=== PATIENT | female | born 1930 | race Caucasian/White ===

== ENCOUNTER 2018-07-09 12:23 | Observation (INO) | payer MEDICARE ==
[~2018-07-09] VITALS: Ht 170.2 cm; Wt 77.2 kg
[2018-07-09 13:42] LABS: BASOPHILS # (AUTO) 0.03 x10^3/uL (0-0.1); BASOPHILS % (AUTO) 1 % (0-1); EOSINOPHILS # (AUTO) 0.06 x10^3/uL (0-0.4); EOSINOPHILS % (AUTO) 1 % (1-7); LYMPHOCYTES # (AUTO) 1.04 x10^3/uL (1-3.4); LYMPHOCYTES % (AUTO) 22 % (22-44); MD NO; MEAN CORPUSCULAR HEMOGLOBIN 29.4 pg (27.0-34.8); MEAN CORPUSCULAR VOLUME 89.1 fL (80-100); MEAN PLATELET VOLUME 8.9 fL (7.4-10.4); MONOCYTES # (AUTO) 0.38 x10^3/uL (0.2-0.8); MONOCYTES % (AUTO) 8 % (2-9); NEUTROPHILS # (AUTO) 3.21 x10^3/uL (1.8-6.8); NEUTROPHILS % (AUTO) 68 % (42-75); PLATELET COUNT 165 x10^3/uL (130-400); RED BLOOD COUNT 4.75 x10^6/uL (3.82-5.3); RED CELL DISTRIBUTION WIDTH 13.9 % (9.6-15.2)
[2018-07-09 13:50] LABS: ALBUMIN 3.4 g/dL (3.4-5.0); ANION GAP 6 mmol/L (5-15); CALCIUM 9.4 mg/dL (8.5-10.1); CHLORIDE 114 mmol/L (98-107); CREATININE 0.69 mg/dL (0.55-1.02)
[2018-07-09 13:54] LABS: TROPONIN I 0.058 ng/mL (0.000-0.045)
--- NOTE | 2018-07-09 14:14 | NUR ---
BREAK RN: PTS DAUGHTER ASKING FOR ADULT BRIEFS FOR PT. PROVIDED. NO OTHER NEEDS EXPRESSED AT THIS TIME. U/S TECH AT BEDSIDE.
--- NOTE | 2018-07-09 14:19 | NUR ---
REPORT TO ZORAN VAZQUEZ.
--- NOTE | 2018-07-09 14:25 | NUR ---
US at bedside at this time
--- NOTE | 2018-07-09 15:09 | NUR ---
SBAR report received from RNZandra. Pt resting on gurhart, on all monitors, daughter at bedside.
--- NOTE | 2018-07-09 15:47 | NUR ---
Admitting MD at bedside.
--- NOTE | 2018-07-09 15:59 | NUR ---
Telephone SBAR report called to Janet VAZQUEZ. Janet notified this RN that the room is not clean and will call our throughput RN when the room is clean.
[2018-07-09] MEDS ORDERED: SODIUM CHLORIDE 0.9% 1,000 ML IV SCH (16:03)
[2018-07-09] MEDS ORDERED: NITROGLYCERIN 0.4 MG BOTTLE (25 TABS) SL PRN (16:30)
[2018-07-09] MEDS ORDERED: LABETALOL 5MG/ML, 20ML IVPush PRN (16:30)
[2018-07-09] MEDS ORDERED: ACETAMINOPHEN 325 MG TABLET PO PRN (16:30)
--- NOTE | 2018-07-09 16:42 | NUR ---
Pt resting on gurodilon, daughter at bedside. Pt forgetful about reason for being here and need to be admitted to hospital. Daughter understands POC.
[2018-07-09 16:46] LABS: INTERNATIONAL NORMALIZED RATIO 1.01 (0.93-1.1); PROTHROMBIN TIME 10.6 Seconds (9.6-11.5)
[2018-07-09 16:56] LABS: TROPONIN I 0.178 ng/mL (0.000-0.045)
[2018-07-09 18:00] VITALS: BP 152/83
[2018-07-09] MEDS: HEPARIN 5,000 UNITS/ML, 1ML SQ SCH ×2 (18:23→19:23)
[2018-07-09 19:12] VITALS: BP 153/89
[2018-07-09 20:54] VITALS: BP 132/77
[2018-07-09] MEDS ORDERED: METOPROLOL TARTRATE 25 MG TABLET PO SCH (21:00)
[2018-07-10 01:06] LABS: TROPONIN I 0.142 ng/mL (0.000-0.045)
[2018-07-10 02:30] VITALS: BP 159/88
[2018-07-10 05:12] LABS: BASOPHILS # (AUTO) 0.03 x10^3/uL (0-0.1); BASOPHILS % (AUTO) 1 % (0-1); EOSINOPHILS # (AUTO) 0.16 x10^3/uL (0-0.4); EOSINOPHILS % (AUTO) 3 % (1-7); LYMPHOCYTES # (AUTO) 1.84 x10^3/uL (1-3.4); LYMPHOCYTES % (AUTO) 39 % (22-44); MD NO; MEAN CORPUSCULAR HEMOGLOBIN 30.5 pg (27.0-34.8); MEAN CORPUSCULAR HGB CONC 34.3 g/dL (32.4-35.8); MEAN CORPUSCULAR VOLUME 89.2 fL (80-100); MEAN PLATELET VOLUME 8.5 fL (7.4-10.4); MONOCYTES % (AUTO) 13 % (2-9); NEUTROPHILS % (AUTO) 44 % (42-75); PLATELET COUNT 150 x10^3/uL (130-400); RED BLOOD COUNT 4.23 x10^6/uL (3.82-5.3); RED CELL DISTRIBUTION WIDTH 13.9 % (9.6-15.2)
[2018-07-10 05:27] LABS: ALBUMIN 2.9 g/dL (3.4-5.0); ANION GAP 6 mmol/L (5-15); CALCIUM 8.7 mg/dL (8.5-10.1); CHLORIDE 113 mmol/L (98-107)
[2018-07-10 05:32] LABS: ALANINE AMINOTRANSFERASE 22 U/L (12-78); ALKALINE PHOSPHATASE 77 U/L (45-117); BILIRUBIN,TOTAL 0.9 mg/dL (0.2-1.0); CREATININE 0.85 mg/dL (0.55-1.02); TOTAL PROTEIN 6.8 g/dL (6.4-8.2); TROPONIN I 0.101 ng/mL (0.000-0.045)
[2018-07-10 07:45] VITALS: BP 165/98
[2018-07-10] MEDS ORDERED: METOPROLOL TARTRATE 25 MG TABLET PO SCH (09:00)
[2018-07-10] MEDS: HEPARIN 5,000 UNITS/ML, 1ML SQ SCH (09:25)
[2018-07-10] MEDS ORDERED: ASPIRIN 81 MG TABLET CHEW PO SCH (12:30)
[2018-07-10] MEDS ORDERED: ASPI-515 PO (12:39)
[2018-07-10] MEDS ORDERED: METO25TA35 PO (12:39)
[2018-07-10] MEDS ORDERED: ATOR40TA78 PO (12:39)
[2018-07-10] MEDS ORDERED: FURO20TA3 PO (12:40)
[2018-07-10] MEDS ORDERED: POTA20PA25 PO (12:40)
[2018-07-10] MEDS ORDERED: POTASSIUM CHLORIDE 20 MEQ PACKET PO SCH (13:00)
[2018-07-10] MEDS ORDERED: FUROSEMIDE 20 MG TABLET PO SCH ×2 (13:00→17:00)
[2018-07-10 13:58] VITALS: BP 132/82
[2018-07-10] MEDS ORDERED: SODIUM CHLORIDE 0.9% 1,000 ML IV SCH (16:03)
[2018-07-10] MEDS ORDERED: ATORVASTATIN 40 MG TABLET PO SCH (21:00)
[2018-07-11] MEDS ORDERED: POTASSIUM CHLORIDE 20 MEQ PACKET PO SCH (08:00)
== END 2018-07-10 16:43 | disposition home or self-care (01) ==
LOC: ED 15:25 → EDIP 15:26 → UNDOADMIN 15:26 → EDIP 16:03 → INTOOBSV 16:03 → ED 16:14 → 5SO 17:53
PROVIDERS: ADMIT Internal Medicine; ATTEND Internal Medicine
DX: R00.2 Palpitations (principal); I48.91 Unspecified atrial fibrillation; F03.90 Unspecified dementia, unspecified severity, without behavioral disturbance, psychotic disturbance, mood disturbance, and anxiety; E78.5 Hyperlipidemia, unspecified; I07.1 Rheumatic tricuspid insufficiency; I35.8 Other nonrheumatic aortic valve disorders; I10 Essential (primary) hypertension; Z82.49 Family history of ischemic heart disease and other diseases of the circulatory system
CPT/HCPCS: 36415; 71045; 80048; 80053; 82040; 83735; 84100; 84443; 84484; 85025; 85610; 85730; 93005; 93306; 93970; 96372; 99284; G0378; J1644; 99285

== ENCOUNTER 2018-08-02 18:11 | Emergency (ER) | payer MEDICARE ==
[~2018-08-02] VITALS: Ht 172.7 cm; Wt 72.0 kg
[~2018-08-02 18:11] MED LIST: ASPI-515 PO; ATOR40TA78 PO; FURO20TA3 PO; METO25TA35 PO; POTA20PA25 PO
[2018-08-02 18:44] LABS: BASOPHILS # (AUTO) 0.01 x10^3/uL (0-0.1); BASOPHILS % (AUTO) 0 % (0-1); EOSINOPHILS # (AUTO) 0.14 x10^3/uL (0-0.4); EOSINOPHILS % (AUTO) 3 % (1-7); LYMPHOCYTES # (AUTO) 1.56 x10^3/uL (1-3.4); LYMPHOCYTES % (AUTO) 27 % (22-44); MD NO; MEAN CORPUSCULAR HGB CONC 34.1 g/dL (32.4-35.8); MEAN CORPUSCULAR VOLUME 87.9 fL (80-100); MEAN PLATELET VOLUME 8.4 fL (7.4-10.4); MONOCYTES # (AUTO) 0.58 x10^3/uL (0.2-0.8); MONOCYTES % (AUTO) 10 % (2-9); NEUTROPHILS % (AUTO) 60 % (42-75); PLATELET COUNT 151 x10^3/uL (130-400); RED BLOOD COUNT 4.64 x10^6/uL (3.82-5.3); RED CELL DISTRIBUTION WIDTH 13.9 % (9.6-15.2)
[2018-08-02 18:57] LABS: ALBUMIN 3.5 g/dL (3.4-5.0); ANION GAP 6 mmol/L (5-15); CALCIUM 9.3 mg/dL (8.5-10.1); CHLORIDE 110 mmol/L (98-107); CREATININE 1.15 mg/dL (0.55-1.02)
--- NOTE | 2018-08-02 19:17 | NUR ---
AMBULATED TO BATHROOM WITH ASSISTANCE AND USE OF CANE
[2018-08-02 19:32] LABS: MICROSCOPIC AUTO
[2018-08-02 19:35] LABS: CULTURE INDICATED? YES
--- NOTE | 2018-08-02 19:38 | NUR ---
SPOKE WITH PT'S DAUGHTER ON THE PHONE AND DISCUSSED OPTIONS TO GET PT HOME IF DISCHARGED. PT PROVIDED DINNER TRAY
[2018-08-02] MEDS ORDERED: CEFDINIR 300 MG CAPSULE PO STA (20:08)
--- NOTE | 2018-08-02 20:16 | NUR ---
SPOKE WITH DAUGHTER ON PHONE. MADE AWARE PT TO BE DISCHARGED. DAUGHTER TO [employer]IEF [employer] OFFICER PT.
[2018-08-02] MEDS ORDERED: CEFDINIR 300 MG CAPSULE ONE (20:48)
--- NOTE | 2018-08-02 21:20 | NUR ---
PT MEDICATED AND WAITING FOR DAUGHTER FOR DISCHARGE. VSS. PT ASSISTED TO BATHROOM AND BROUGHT BACK TO ROOM. CALL LIGHT IN REACH
[2018-08-02 21:30] VITALS: BP 145/78
--- NOTE | 2018-08-02 21:36 | NUR ---
Caregiver given discharge instructions and they have confirmed that they understand the instructions. Patient ambulatory with steady gait.
== END 2018-08-02 21:38 | disposition home or self-care (01) ==
LOC: ED 18:31
DX: N30.00 Acute cystitis without hematuria (principal); R53.1 Weakness; E78.5 Hyperlipidemia, unspecified; I10 Essential (primary) hypertension
CPT/HCPCS: 36415; 80048; 81001; 82040; 85025; 87077; 87086; 87186; 93005; 99284

== ENCOUNTER 2019-03-15 16:30 | Inpatient (IN) | payer MEDICARE ==
[~2019-03-15] VITALS: Ht 170.2 cm; Wt 76.1 kg
--- NOTE | 2019-03-15 16:42 | NUR ---
THIS IS AN 88 YO F BIB [facility] FOR NEAR SYNCOPAL EPISODE. PATIENT WAS STANDING IN THE BATHROOM LOOKING IN THE MIRROR WHEN SHE STARTED FEELING DIZZY AND FELL BACK AND HIT HER HEAD ON THE DOOR THEN SLID HERSELF TO THE GROUND. [facility] STATED PATIENT WAS IN AFIB WITH RVR HR IN THE 150'S UPON ARRIVAL. AFTER RECEIVING 500ML PATIENTS HR WENT DOWN TO 120-130. HX OF AFIB AND MILD DEMENTIA. PER RUISA DAUGHTER SPOKE TO PATIENT ON THE PHONE AND HER CURRENT MENTAL STATUS IS BASELINE. PATIENTS RESPIRATIONS ARE EVEN AND UNLABORED. PATIENT IS IN NO ACUTE DISTRESS. DENIES CHEST PAIN. PATIENT BEING EVALUATED BY PROVIDER.
[2019-03-15] MEDS ORDERED: DILTIAZEM 5 MG/ML, 5ML ONE (16:48)
[2019-03-15] MEDS ORDERED: DILTIAZEM 5 MG/ML, 5ML IVPush STA (16:48)
[2019-03-15] MEDS ORDERED: SODIUM CHLORIDE FLUSH 10ML SYR IVF ONE (17:00)
[2019-03-15 17:05] LABS: BASOPHILS # (AUTO) 0.04 x10^3/uL (0-0.1); BASOPHILS % (AUTO) 1 % (0-1); EOSINOPHILS % (AUTO) 2 % (1-7); LYMPHOCYTES # (AUTO) 1.63 x10^3/uL (1-3.4); LYMPHOCYTES % (AUTO) 28 % (22-44); MD NO; MEAN CORPUSCULAR HEMOGLOBIN 30.8 pg (27.0-34.8); MEAN CORPUSCULAR HGB CONC 33.1 g/dL (32.4-35.8); MEAN CORPUSCULAR VOLUME 92.9 fL (80-100); MEAN PLATELET VOLUME 8.9 fL (7.4-10.4); MONOCYTES # (AUTO) 0.55 x10^3/uL (0.2-0.8); MONOCYTES % (AUTO) 10 % (2-9); NEUTROPHILS # (AUTO) 3.43 x10^3/uL (1.8-6.8); NEUTROPHILS % (AUTO) 60 % (42-75); PLATELET COUNT 158 x10^3/uL (130-400); RED CELL DISTRIBUTION WIDTH 13.2 % (9.6-15.2)
[2019-03-15 17:15] LABS: ALANINE AMINOTRANSFERASE 23 U/L (12-78); ALBUMIN 3.8 g/dL (3.4-5.0); ANION GAP 9 mmol/L (5-15); CALCIUM 9.3 mg/dL (8.5-10.1); CHLORIDE 110 mmol/L (98-107)
--- NOTE | 2019-03-15 17:18 | NUR ---
PATIENT ASSISTED TO THE BATHROOM BY STAFF.
[2019-03-15 17:20] LABS: ALKALINE PHOSPHATASE 90 U/L (45-117); BILIRUBIN,TOTAL 0.8 mg/dL (0.2-1.0); TOTAL PROTEIN 7.6 g/dL (6.4-8.2); TROPONIN I < 0.015 ng/mL (0.000-0.045)
[2019-03-15] MEDS ORDERED: DILTIAZEM 125 MG in SODIUM CHLORIDE 0.9% 100 ML IV SCH (17:26)
[2019-03-15] MEDS ORDERED: SODIUM CHLORIDE 0.9% 1,000ML IVBOLUS ONE (17:30)
[2019-03-15 17:35] LABS: MICROSCOPIC AUTO
--- NOTE | 2019-03-15 17:35 | NUR ---
MD AWARE OF CURRENT HR AND BP AFTER DILTIAZEM GIVEN. ORDERS TO BE GIVEN FOR DILT DRIP AND IV FLUIDS
--- NOTE | 2019-03-15 17:43 | NUR ---
PATIENT RESTING ON GURNEY CONVERSATING WITH STAFF. VITALS UPDATED. CALL LIGHT IN REACH.
[2019-03-15 17:45] LABS: CULTURE INDICATED? YES
--- NOTE | 2019-03-15 17:52 | NUR ---
OFF FLOOR TO CT
--- NOTE | 2019-03-15 17:53 | NUR ---
SPOKE TO DAUGHTER VIDAL ON THE PHONE. SHE STATES PATIENT HAS NEVER BEEN DIAGNOSED WITH AFIB. 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 STATES THAT PATIENT HAD AN ECHO ON SATURDAY THROUGH [facility] FOR PALPITATIONS. ALSO MENTIONED THAT PATIENT HAS NOT EATEN TODAY. FAMILY IS UPSET WITH [facility].
[2019-03-15] MEDS ORDERED: POTASSIUM CHLORIDE 20 MEQ TAB.ER.PRT PO ONE (18:00)
[2019-03-15] MEDS ORDERED: POTASSIUM CHLORIDE 20 MEQ TAB.ER.PRT ONE (18:19)
[2019-03-15] MEDS ORDERED: METO25TA35 PO (18:33)
[2019-03-15] MEDS ORDERED: BUSP5TAB2 PO (18:38)
[2019-03-15] MEDS ORDERED: FLUO10CA7 PO (18:38)
[2019-03-15] MEDS ORDERED: MELO15TA24 PO (18:38)
--- NOTE | 2019-03-15 18:39 | NUR ---
REPORT TO CHENTE VAZQUEZ. PT TO BE TRANSPORTED TO FLOOR.
[2019-03-15] MEDS ORDERED: ERGO500017 PO (18:41)
[2019-03-15] MEDS ORDERED: QUET50TA PO (18:41)
--- NOTE | 2019-03-15 18:47 | NUR ---
PATIENT ASSISTED TO THE COMMODE
--- NOTE | 2019-03-15 19:00 | NUR ---
CARDIZEM STILL INFUSING AT TIME OF TRANSFER.
[2019-03-15 19:30] VITALS: BP 96/62
[2019-03-15] MEDS ORDERED: PHARMACY MAY ADJ FOR RENAL FX MC PRN (19:30)
[2019-03-15 19:37] VITALS: BP 107/69
[2019-03-15 19:43] VITALS: BP 103/69
[2019-03-15] MEDS ORDERED: DOCUSATE 100 MG CAPSULE PO PRN (20:00)
[2019-03-15] MEDS ORDERED: ONDANSETRON 2MG/ML, 2ML IVPush PRN (20:00)
[2019-03-15] MEDS ORDERED: ACETAMINOPHEN 325 MG TABLET PO PRN (20:00)
[2019-03-15] MEDS: SODIUM CHLORIDE 0.9%, 500ML IVBOLUS ONE ×2 (20:52→21:59)
[2019-03-15] MEDS: ENOXAPARIN 60 MG/0.6 ML SQ SCH (20:52)
[2019-03-15] MEDS: QUETIAPINE 25MG TABLET PO SCH (20:52)
[2019-03-15] MEDS: ATORVASTATIN 40 MG TABLET PO SCH (20:53)
[2019-03-15] MEDS: BUSPIRONE 5 MG TABLET PO SCH (20:54)
[2019-03-15 23:42] LABS: TROPONIN I 0.528 ng/mL (0.000-0.045)
[2019-03-16 01:25] VITALS: BP 96/58
[2019-03-16 05:34] LABS: BASOPHILS # (AUTO) 0.07 x10^3/uL (0-0.1); BASOPHILS % (AUTO) 1 % (0-1); EOSINOPHILS # (AUTO) 0.12 x10^3/uL (0-0.4); EOSINOPHILS % (AUTO) 2 % (1-7); LYMPHOCYTES # (AUTO) 2.06 x10^3/uL (1-3.4); LYMPHOCYTES % (AUTO) 40 % (22-44); MD NO; MEAN CORPUSCULAR HEMOGLOBIN 31.1 pg (27.0-34.8); MEAN CORPUSCULAR HGB CONC 33.4 g/dL (32.4-35.8); MEAN CORPUSCULAR VOLUME 93.2 fL (80-100); MEAN PLATELET VOLUME 8.5 fL (7.4-10.4); MONOCYTES # (AUTO) 0.58 x10^3/uL (0.2-0.8); MONOCYTES % (AUTO) 11 % (2-9); NEUTROPHILS # (AUTO) 2.28 x10^3/uL (1.8-6.8); NEUTROPHILS % (AUTO) 45 % (42-75); PLATELET COUNT 132 x10^3/uL (130-400); RED BLOOD COUNT 3.94 x10^6/uL (3.82-5.3); RED CELL DISTRIBUTION WIDTH 13.4 % (9.6-15.2)
[2019-03-16 05:48] LABS: CHLORIDE 113 mmol/L (98-107)
[2019-03-16 05:57] LABS: ANION GAP 5 mmol/L (5-15); CREATININE 1.11 mg/dL (0.55-1.02)
[2019-03-16 06:33] VITALS: BP 111/71
[2019-03-16] MEDS ORDERED: FUROSEMIDE 20 MG TABLET PO SCH (08:00)
[2019-03-16] MEDS ORDERED: METOPROLOL TARTRATE 25 MG TABLET PO SCH (09:00)
[2019-03-16] MEDS ORDERED: MELOXICAM 15 MG TABLET PO SCH (09:00)
[2019-03-16] MEDS: POTASSIUM CHLORIDE 20 MEQ PACKET PO SCH (09:17)
[2019-03-16] MEDS: BUSPIRONE 5 MG TABLET PO SCH ×2 (09:22→21:06)
[2019-03-16] MEDS: METOPROLOL TARTRATE 25 MG TABLET PO SCH (09:24)
[2019-03-16] MEDS: FLUOXETINE 10 MG CAP PO SCH (09:25)
[2019-03-16] MEDS: ENOXAPARIN 60 MG/0.6 ML SQ SCH ×2 (09:27→21:06)
[2019-03-16 12:48] VITALS: BP 99/63
[2019-03-16 16:56] VITALS: BP 118/74
[2019-03-16] MEDS: FUROSEMIDE 20 MG TABLET PO SCH (16:59)
[2019-03-16] MEDS ORDERED: DILTIAZEM 125 MG in SODIUM CHLORIDE 0.9% 100 ML IV SCH (17:26)
[2019-03-16 17:54] LABS: TROPONIN I 0.671 ng/mL (0.000-0.045)
[2019-03-16 19:05] VITALS: BP 110/70
[2019-03-16] MEDS: QUETIAPINE 25MG TABLET PO SCH (21:06)
[2019-03-16] MEDS: ATORVASTATIN 40 MG TABLET PO SCH (21:06)
[2019-03-17 01:29] VITALS: BP 120/77
[2019-03-17] MEDS: ASPIRIN 81 MG TABLET EC PO SCH (05:40)
[2019-03-17 06:31] VITALS: BP 116/76
[2019-03-17] MEDS: FUROSEMIDE 20 MG TABLET PO SCH ×2 (09:01→16:59)
[2019-03-17] MEDS: METOPROLOL TARTRATE 25 MG TABLET PO SCH (09:01)
[2019-03-17] MEDS: ENOXAPARIN 60 MG/0.6 ML SQ SCH ×2 (09:01→20:23)
[2019-03-17] MEDS: POTASSIUM CHLORIDE 20 MEQ PACKET PO SCH (09:01)
[2019-03-17] MEDS: BUSPIRONE 5 MG TABLET PO SCH ×2 (09:01→20:22)
[2019-03-17] MEDS: FLUOXETINE 10 MG CAP PO SCH (09:01)
[2019-03-17 13:04] VITALS: BP 92/60
[2019-03-17 16:57] VITALS: BP 98/62
[2019-03-17 20:20] VITALS: BP 98/64
[2019-03-17] MEDS: QUETIAPINE 25MG TABLET PO SCH (20:23)
[2019-03-17] MEDS: ATORVASTATIN 40 MG TABLET PO SCH (20:23)
[2019-03-18 00:50] VITALS: BP 122/76
[2019-03-18] MEDS: ASPIRIN 81 MG TABLET EC PO SCH (05:33)
[2019-03-18 06:33] VITALS: BP 113/77
[2019-03-18] MEDS: ENOXAPARIN 60 MG/0.6 ML SQ SCH (10:19)
[2019-03-18] MEDS: POTASSIUM CHLORIDE 20 MEQ PACKET PO SCH (10:19)
[2019-03-18] MEDS: FUROSEMIDE 20 MG TABLET PO SCH (10:19)
[2019-03-18] MEDS: METOPROLOL TARTRATE 25 MG TABLET PO SCH (10:20)
[2019-03-18] MEDS: BUSPIRONE 5 MG TABLET PO SCH (10:20)
[2019-03-18] MEDS: FLUOXETINE 10 MG CAP PO SCH (10:20)
[2019-03-18 10:24] VITALS: BP 114/74
[2019-03-18 12:00] VITALS: BP 99/62
[2019-03-18] MEDS ORDERED: FLU VACC QS2019-20 36MOS UP/PF 0.5 ML IM-VACC ONE (14:30)
== END 2019-03-18 14:55 | disposition home or self-care (01) | DRG 280 ==
LOC: ED 17:37 → EDIP 18:15 → 5SO 19:25
PROVIDERS: ADMIT Internal Medicine; ATTEND Internal Medicine
DX: I48.91 Unspecified atrial fibrillation (principal); N17.0 Acute kidney failure with tubular necrosis; I21.A1 Myocardial infarction type 2; D68.59 Other primary thrombophilia; E46 Unspecified protein-calorie malnutrition; Z88.8 Allergy status to other drugs, medicaments and biological substances; Z68.26 Body mass index [BMI] 26.0-26.9, adult; E78.5 Hyperlipidemia, unspecified; E87.6 Hypokalemia; F02.80 Dementia in other diseases classified elsewhere, unspecified severity, without behavioral disturbance, psychotic disturbance, mood disturbance, and anxiety; F32.9 Major depressive disorder, single episode, unspecified; F41.9 Anxiety disorder, unspecified; G30.1 Alzheimer's disease with late onset; I08.1 Rheumatic disorders of both mitral and tricuspid valves; I10 Essential (primary) hypertension; Z66 Do not resuscitate; Z79.82 Long term (current) use of aspirin; Z91.81 History of falling; W18.39XA Other fall on same level, initial encounter; Y93.89 Activity, other specified; Y92.89 Other specified places as the place of occurrence of the external cause; Y99.8 Other external cause status
CPT/HCPCS: 36415; 70450; 71045; 80048; 80053; 81001; 83735; 84100; 84443; 84484; 85025; 87086; 90686; 93005; 99291; G0378; J1650; J7030; J7040